=== PATIENT | female | born 1975 | race Caucasian/White ===

== ENCOUNTER 2016-05-14 12:28 | Emergency (ER) | payer OTHER ==
[2016-05-14 13:31] VITALS: BP 150/101
[2016-05-14] MEDS ORDERED: Cyclobenzaprine TAB* 10 MG PO ONE (13:46)
[2016-05-14] MEDS ORDERED: Ketorolac INJ* 30 MG/ML 1 ML VIAL IM ONE (13:46)
--- NOTE | 2016-05-14 13:50 | UC ---
Neck Pain HPI - HPI Summary HPI Summary: Patient has history of muscle pain and neck pain, but this morning she turned just right , felt a shooting pain and then spasmfrom her heck to mid back, radiating to the right shoulder. has been using heat. - History of Current Complaint Chief Complaint: UCBackPain Stated Complaint: NECK PAIN Time Seen by Provider: 05/14/16 13:41 Hx Obtained From: Patient Hx Last Menstrual Period: 3-4 weeks ?: No Mechanism Of Injury: No Known Trauma Timing: Constant Onset/Duration: Sudden Onset, Lasting Hours Severity: Severe Location: Discrete At: - right shoulder complex Character: Aching, Spasmotic, Burning Aggravating Factors: Position, Movement Alleviating Factors: Nothing - Allergies/Home Medications Allergies/Adverse Reactions: Allergies Allergy/AdvReac Type Severity Reaction Status Date / Time Hydrocodone [From Vicodin] Allergy Hallucinati Verified 05/14/16 13:32 ons Sulfa Antibiotics Allergy Swelling Verified 05/14/16 13:32 Of Face,Lips,& Throat environmental Allergy Eyes Uncoded 05/14/16 13:32 Itchy/Swollen/Red/Watery salami Allergy Anaphylatic Uncoded 05/14/16 13:32 Shock Home Medications: Home Medications Cetirizine* [ZyrTEC 10 MG TAB*] 10 mg PO DAILY 05/14/16 [History Confirmed 05/14] Ibuprofen TAB* [Advil TAB*] 400 mg PO ONCE PRN 05/14/16 [History Confirmed 05/14] PMH/Surg Hx/FS Hx/Imm Hx Previously Healthy: Yes - Surgical History Surgical History: Yes Surgery Procedure, Year, and Place: 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 - Family History Known Family History: Negative: Cardiac Disease, Hypertension - Social History Alcohol Use: Occasionally Substance Use Type: None Smoking Status (MU): Current Some Day Smoker Review Of Systems Constitutional: Positive: Negative Skin: Positive: Negative Eyes: Positive: Negative ENT: Positive: Negative Respiratory: Positive: Negative Cardiovascular: Positive: Negative Gastrointestinal: Positive: Negative Genitourinary: Positive: Negative Musculoskeletal: Positive: Arthralgia, Decreased ROM, Myalgia Neurological: Positive: Headache Psychological: Positive: Negative All Other Systems Reviewed And Are Negative: Yes Physical Exam Triage Information Reviewed: Yes Appearance: Well-Nourished, Ill-Appearing, Pain Distress Vital Signs: Initial Vital Signs Temp 100.1 F 05/14/16 13:24 Pulse 85 05/14/16 13:24 BP 150/101 05/14/16 13:24 Vital Signs Reviewed: Yes Eye Exam: Normal Eyes: Positive: Conjunctiva Clear ENT Exam: Normal ENT: Positive: Normal ENT inspection, Hearing grossly normal, Pharynx normal, TMs normal Dental Exam: Normal Neck: Positive: No Lymphadenopathy, Tenderness @ - right musculature Respiratory Exam: Normal Respiratory: Positive: Chest non-tender, Lungs clear, Normal breath sounds Cardiovascular Exam: Normal Cardiovascular: Positive: RRR, No Murmur, Pulses Normal Abdominal Exam: Normal Abdomen Description: Positive: Nontender, No Organomegaly, Soft Bowel Sounds: Positive: Present Musculoskeletal Exam: Normal Musculoskeletal: Positive: No Edema, Strength Limited @ - right arm, ROM Limited @ Neurological Exam: Normal Neurological: Positive: Alert, Muscle Tone Normal Psychological Exam: Normal Skin Exam: Normal Neck Pain Course/Dx - Course Course Of Treatment: hx obtained, exam performed, meds reviewed and given. - Differential Dx/Diagnosis Differential Dx/HQI/PQRI: Sprain, Strain, Torticollis Provider Diagnoses: back muscle spasm. si joint dysfunction Discharge - Discharge Plan Condition: Stable Disposition: HOME Prescriptions: Cyclobenzaprine TAB* [Flexeril 10 MG TAB*] 10 mg PO TID PRN #28 tab PRN Reason: Spasms Patient Education Materials: Muscle Spasm (ED) Forms: *Work Release Referrals: Lisa Andrews MD [Primary Care Provider] - Additional Instructions: I recommend resting for the next 2 days, heat, mild stretching in pain free Range of Motion. Follow up with massage therapy to help rebalance the hips.
== END 2016-05-14 14:45 | disposition home or self-care (01) ==
LOC: UCCORT 12:28
DX: M62.830 Muscle spasm of back (principal); M53.3 Sacrococcygeal disorders, not elsewhere classified; R03.0 Elevated blood-pressure reading, without diagnosis of hypertension; Z89.021 Acquired absence of right finger(s); Z88.5 Allergy status to narcotic agent; Z88.2 Allergy status to sulfonamides; Z72.0 Tobacco use
CPT/HCPCS: 99212; A9270-GY; G0463; J1885

== ENCOUNTER 2018-04-12 16:24 | Emergency (ER) | payer OTHER ==
[2018-04-12 16:48] VITALS: BP 104/73
[2018-04-12 17:19] LABS: Influenza A Molecular NEGATIVE (Negative); Influenza B Molecular NEGATIVE (Negative)
[2018-04-12] MEDS ORDERED: Ondansetron ODT TAB* 4 MG PO ONE (18:07)
[2018-04-12] MEDS ORDERED: NS 0.9% 1000 ML** 1,000 ML BOLUS ONE (18:07)
--- NOTE | 2018-04-12 18:15 | UC ---
Abdominal Pain Female HPI - HPI Summary HPI Summary: 42 yo female with the onset of n/v/d around 5 AM today diffuse lower crampy abd pain diarrhea > 20 x vomiting 3-4 f/c [facility] weak and dizzy - History of Current Complaint Chief Complaint: UCGeneralIllness Stated Complaint: VOMITING,BODY ACHES,DIARRHEA Time Seen by Provider: 04/12/18 17:52 Hx Obtained From: Patient Hx Last Menstrual Period: 03/22/18 Onset/Duration: Gradual Onset Timing: Constant Severity Initially: Mild Severity Currently: Moderate Pain Intensity: 3 Pain Scale Used: 0-10 Numeric Location: Diffuse Radiates: No Character: Cramping Aggravating Factor(s): Food Alleviating Factor(s): Nothing Associated Signs and Symptoms: Positive: Fever, Dizzy, Decreased Appetite, Nausea, Vomiting, Diarrhea. Negative: Diaphoresis, Cough, Chest Pain, Back Pain , Constipation, Blood in Stool, Urinary Symptoms Allergies/Adverse Reactions: Allergies Allergy/AdvReac Type Severity Reaction Status Date / Time hydrocodone Allergy Hallucinati Verified 04/12/18 16:43 ons Sulfa (Sulfonamide Allergy Swelling Verified 04/12/18 16:43 Antibiotics) Of Face,Lips,& Throat environmental Allergy Eyes Uncoded 05/14/16 13:32 Itchy/Swollen/Red/Watery salami Allergy Anaphylatic Uncoded 05/14/16 13:32 Shock PMH/Surg Hx/FS Hx/Imm Hx Previously Healthy: Yes - Surgical History Surgical History: Yes Surgery Procedure, Year, and Place: 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 - Family History Known Family History: Positive: Other - sister with rheumatic heart disease Negative: Cardiac Disease, Hypertension - Social History Alcohol Use: Occasionally Substance Use Type: None Smoking Status (MU): Current Some Day Smoker Type: Cigarettes Review of Systems All Other Systems Reviewed And Are Negative: Yes Constitutional: Positive: Fever, Chills, Fatigue Skin: Positive: Negative Eyes: Positive: Negative ENT: Positive: Negative Respiratory: Positive: Negative Cardiovascular: Positive: Negative Gastrointestinal: Positive: Abdominal Pain, Vomiting, Diarrhea, Nausea Genitourinary: Positive: Negative Motor: Positive: Negative Neurovascular: Positive: Negative Musculoskeletal: Positive: Negative Neurological: Positive: Weakness - generalized Psychological: Positive: Negative Physical Exam Triage Information Reviewed: Yes Appearance: Well-Appearing, No Pain Distress, Well-Nourished Vital Signs: Initial Vital Signs Temp 100.1 F 04/12/18 16:40 Pulse 104 04/12/18 16:40 Resp 20 04/12/18 16:40 BP 104/73 04/12/18 16:40 Pulse Ox 99 04/12/18 16:40 Vital Signs Reviewed: Yes Eyes: Positive: Conjunctiva Clear ENT: Positive: Hearing grossly normal. Negative: Nasal congestion, Nasal drainage, Trismus, Muffled voice, Dental tenderness Neck: Positive: Nontender, No Lymphadenopathy Respiratory: Positive: Lungs clear, Normal breath sounds, No respiratory distress, No accessory muscle use Cardiovascular: Positive: RRR, No Murmur Abdomen Description: Positive: Nontender, No Organomegaly, Soft. Negative: CVA Tenderness (R), CVA Tenderness (L) Bowel Sounds: Positive: Present Musculoskeletal: Positive: ROM Intact, No Edema Neurological: Positive: Alert Psychological Exam: Normal Skin Exam: Normal Re-Evaluation - Re-Evaluation First Eval Re-Evaluation Time: 18:54 Change: Improved - want to go home Comment: non tender Abd Pain Female Course/Dx - Differential Dx/Diagnosis Provider Diagnosis: Gastroenteritis Discharge - Sign-Out/Discharge Documenting (check all that apply): Patient Departure All imaging exams completed and their final reports reviewed: No Studies - Discharge Plan Condition: Stable Disposition: HOME Prescriptions: Ondansetron TAB* [Zofran Tab*] 4 mg PO Q6H PRN #10 tab PRN Reason: Nausea Patient Education Materials: Gastroenteritis (ED) Forms: *Work Release Referrals: Lisa Andrews MD [Primary Care Provider] - 1 Day (1-2 days if not better) Additional Instructions: rest nothing by mouth for about 4 hours then clear liquids recheck in 1-2 days if not better to ER for worsening symptoms bring in stool for studies - Billing Disposition and Condition Condition: STABLE Disposition: Home
[2018-04-12] MEDS ORDERED: Ketorolac INJ* 30 MG/ML 1 ML VIAL IV ONE (18:56)
== END 2018-04-12 19:33 | disposition home or self-care (01) ==
LOC: UCCORT 16:24
DX: K52.9 Noninfective gastroenteritis and colitis, unspecified (principal); F17.210 Nicotine dependence, cigarettes, uncomplicated; Z88.5 Allergy status to narcotic agent; Z88.2 Allergy status to sulfonamides; Z91.09 Other allergy status, other than to drugs and biological substances; Z91.018 Allergy to other foods
CPT/HCPCS: 81003; 96361; 96374; 99212; A9270-GY; G0463; J1885